=== PATIENT | female | born 1990 | race Two or more races ===

== ENCOUNTER 2018-03-30 10:49 | Emergency (ER) | payer MEDICAID ==
[~2018-03-30] VITALS: Ht 165.1 cm; Wt 70.0 kg
[2018-03-30 10:56] VITALS: BP 123/53
== END 2018-03-30 14:11 | disposition left against medical advice (07) ==
LOC: ER 10:49
DX: M54.9 Dorsalgia, unspecified (principal); Z53.21 Procedure and treatment not carried out due to patient leaving prior to being seen by health care provider